=== PATIENT | male | born 1980 | race American Indian/Alaskan Native ===

== ENCOUNTER 2021-12-11 06:20 | Day surgery (SDC) | payer BC ==
[~2021-12-11 06:20] MED LIST: MIDAZOLAM 2 MG/2 ML INJ IV NR; SODIUM CHLORIDE 0.9% 1000 ML 1,000 ML IV SCH; ceFAZolin/Water 2 GM/20 ML 2 GM/20 ML SYRINGE IV NR; fentaNYL 100 MCG/2 ML INJ IV PRN
[2021-12-11 07:14] LABS: Hematocrit 40.7 % (35.5-45.6); Hemoglobin 13.7 gm/dl (11.8-15.2); Mean Corpuscular HGB Conc 34 % (32-34); Mean Corpuscular Volume 89 fl (84-94); Platelet Count 363 K/mm3 (140-440); Red Blood Count 4.58 M/mm3 (3.65-5.03); Red Cell Distribution Width 14.3 % (13.2-15.2)
[2021-12-11 07:24] LABS: Calcium 9.9 mg/dL (8.4-10.2)
[2021-12-11] MEDS ORDERED: BUPIVACAINE/PF (0.5%) 5 MG/1 ML 30 ML VIAL INFILTRATI ONE ×2 (07:41→10:24)
[2021-12-11] MEDS ORDERED: LIDOCAINE (1%) 10 MG/1 ML VIAL 20 ML MDV ONE (07:41)
[2021-12-11] MEDS ORDERED: SODIUM CHLORIDE P/F VIAL 10 ML 10 ML ONE (07:41)
[2021-12-11] MEDS ORDERED: rifAMPin 600 MG VIAL ONE (07:41)
[2021-12-11] MEDS ORDERED: HEPARIN 10,000 UNITS/10 ML VIAL ONE (07:41)
[2021-12-11] MEDS ORDERED: SODIUM CHLORIDE 0.9% 500 ML 500 ML ONE (07:42)
--- NOTE | 2021-12-11 07:53 | Anesthesia Day of Surgery ---
Anesthesia Day of Surgery - Day of Surgery Patient Examined: Yes Patient H&P Reviewed: Yes Patient is NPO: Yes
--- NOTE | 2021-12-11 07:53 | Anesthesia Consultation ---
Anesthesia Consult and Med Hx Date of service: 12/11/21 - Airway Anesthetic Teeth Evaluation: Good ROM Head & Neck: Adequate Mental/Hyoid Distance: Adequate Mallampati Class: Class III Intubation Access Assessment: Possibly Difficult - Pre-Operative Health Status ASA Pre-Surgery Classification: ASA3 Proposed Anesthetic Plan: General - Pre-Anesthesia Comment Pre-Anesthesia Comments: Discussed GA vs regional. Patient requests GA. - Pulmonary Hx Smoking: No Hx Respiratory Symptoms: No - Cardiovascular System Hx Hypertension: Yes (took antihypertensives this morning) Hx Heart Attack/AMI: No Hx Percutaneous Transluminal Coronary Angioplasty (PTCA): No - Central Nervous System CVA: No - Endocrine Hx Renal Disease: Yes (CKD V) Hx Liver Disease: No Hx Insulin Dependent Diabetes: No Hx Non-Insulin Dependent Diabetes: No Hx Thyroid Disease: No - Additional Comments Anesthesia Medical History Comments: No hx anesthetic complications.
[2021-12-11] MEDS ORDERED: OXYMETAZOLINE 0.05% NASAL SPRAY NS SCH (08:00)
[2021-12-11] MEDS ORDERED: fentaNYL 100 MCG/2 ML INJ IV PRN (08:00)
[2021-12-11] MEDS ORDERED: HYDROmorphone 1 MG/1 ML INJ ONE (08:00)
[2021-12-11] MEDS ORDERED: ONDANSETRON 4 MG/2 ML INJ IV PRN (08:00)
[2021-12-11] MEDS ORDERED: HYDROcodone/ACETAMINOPHEN 5-325 MG TAB PO PRN (08:00)
[2021-12-11] MEDS ORDERED: propofoL 200 MG/20 ML VIAL IV ONE (08:01)
[2021-12-11] MEDS ORDERED: LIDOCAINE MPF (2%) 20 MG/1 ML VIAL 5 ML ONE (08:03)
--- NOTE | 2021-12-11 08:33 | Short Stay Summary ---
Short Stay Documentation Date of service: 12/11/21 Narrative H&P: The patient is a 41-year-old male with a history of stage IV chronic renal sufficiency who is in need of long-term dialysis access. He is currently not on hemodialysis however access is needed to avoid a permacath if he progresses to end-stage renal disease. An ultrasound was performed that demonstrated his veins were in adequate for creation of an arteriovenous fistula so he will require creation of an arteriovenous graft. He was given the risk, benefits, and alternative procedures and consented to the procedure. - History Past Medical History: hypertension, renal failure Past Surgical History: No surgical history Social history: no significant social history - Allergies and Medications Current Medications: Allergies No Known Allergies Allergy (Verified 11/16/21 14:23) Home Medications Medication Instructions Recorded Confirmed Last Taken Type Chlorthalidone [Thalitone] 25 mg PO QDAY 12/04/21 12/11/21 12/10/21 09:00 History Sodium Bicarbonate 650 mg PO DAILY 12/04/21 12/11/21 12/10/21 09:00 History amLODIPine [Norvasc] 10 mg PO DAILY 12/04/21 12/11/21 12/11/21 05:00 History hydrALAZINE [Apresoline TAB] 100 mg PO TID 12/04/21 12/11/21 12/11/21 05:00 History Active Medications Hydrocodone Bitart/Acetaminophen (Hydrocodone/Acetaminophen 5-325 Mg Tab) 2 each PO ONCE PRN PRN Reason: Pain, Moderate (4-6) Stop: 12/11/21 17:00 Fentanyl (Fentanyl 100 Mcg/2 Ml Inj) 100 mcg IV ONCE PRN PRN Reason: sedation for nerve block Fentanyl (Fentanyl 100 Mcg/2 Ml Inj) 50 mcg IV Q5MIN PRN PRN Reason: Pain , Severe (7-10) Stop: 12/11/21 18:00 Sodium Chloride (Nacl 0.9% 1000 Ml) 1,000 mls @ 42 mls/hr IV DIRECT G[place]KITO Stop: 12/11/21 23:59 Last Admin: 12/11/21 07:55 Dose: 42 mls/hr Ondansetron HCl (Ondansetron 4 Mg/2 Ml Inj) 4 mg IV ONCE PRN PRN Reason: Nausea And Vomiting Stop: 12/11/21 17:00 Oxymetazoline HCl (Oxymetazoline 0.05% Nasal [place]) 2 spray NS ONCE@0800 [facility] Stop: 12/11/21 16:00 - Physical exam General appearance: no acute distress Lungs: Normal air movement Breasts: deferred Heart: Regular rate Gastrointestinal: normal Male Genitourinary: deferred Female Genitourinary: deferred Rectal Exam: deferred Extremities: pulses intact (Palpable radial pulses bilaterally) - Brief post op/procedure progress note Date of procedure: 12/11/21 Pre-op diagnosis: Chronic Renal Insufficiency Stage IV Post-op diagnosis: same Procedure: Creation of Left Ashwin Arteriovenous Fistula Anesthesia: BAIRON Surgeon: MARION SHER Estimated blood loss: minimal Pathology: none Condition: stable - Disposition Condition at discharge: Good Disposition: 01 HOME / SELF CARE / HOMELESS Short Stay Discharge Plan Activity: other (No heavy lifting with left arm for 2 weeks.) Wound: open to air, keep clean and dry, per your surgeon's advice (You stress ball with left hand as often as possible.), other (Okay to wash the left arm incision with soap and water but do not soak in water for 2 weeks.) Follow up with: MARION SHER MD [Staff Physician] - 14 Days Prescriptions: HYDROcodone/APAP 7.5-325 [[place] 7.5/325] 1 each PO Q6HR PRN #30 tablet PRN Reason: Pain
[2021-12-11] MEDS ORDERED: GLYCOPYRROLATE 0.4 MG/2 ML INJ ONE (09:12)
[2021-12-11] MEDS ORDERED: HEPARIN 10,000 UNITS/10 ML VIAL IV ONE (09:30)
[2021-12-11] MEDS ORDERED: SODIUM CHLORIDE 0.9% IRR 500 ML BOTTLE IR ONE (09:31)
[2021-12-11] MEDS ORDERED: PHENYLEPHRINE/NS 1,000 MCG/10 ML SYRINGE (OR USE) IV ONE (09:43)
[2021-12-11] MEDS ORDERED: ONDANSETRON 4 MG/2 ML INJ ONE (10:33)
--- NOTE | 2021-12-11 10:36 | Operative Report ---
Operative Report Operative Report: Date of procedure: 12/11/2021 Pre-operative diagnosis: Chronic Renal Insufficiency Stage IV Post-operative diagnosis: Same Procedure(s): Creation of Left Ashwin Fistula Surgeon: Luis Antonio Kuhn MD Heat Treating Furnace Tender: None Anesthesia: General Endotracheal Anesthesia EBL: Minimal Counts: Correct Complications: None Condition: Stable Findings: Successful creation of left arm AV fistula with palpable thrill at the completion of the case. Specimen: None Indication: The patient is a 41-year-old male with a history of Chronic Renal Insufficiency Stage IV who was not yet on hemodialysis however it is anticipated that he will require hemodialysis in the near future. He is in need of long-term dialysis access to avoid placement of a permacath. Vein mapping demonstrated that he does not have adequate vein for creation of an arteriovenous fistula so he requires creation of an arteriovenous graft. He was given the risk, benefits, and alternative procedures and consented to the procedure. Description of Procedure: The patient was brought to the operating room and laid in supine position. After a timeout was performed general endotracheal anesthesia was achieved and his left arm was prepped and draped in normal sterile fashion. The initial plan was to create an arteriovenous graft however once the patient was under general endotracheal anesthesia his veins were significantly dilated and it was obvious that he had adequate vein, in his forearm, for creation of a Ashwin fistula. A longitudinal incision was then created on the distal wrist, centered between the cephalic vein and the radial artery. The dissection was carried down to the radial artery using sharp dissection and the radial artery was dissected circumferentially and controlled with vessel loops. The cephalic vein was then dissected circumferentially, ligating side branches with 3-0 silk ties and dividing them. The cephalic vein was then divided distally transpose to the radial artery. A 2 Crissy was then advanced through the cephalic vein proximally to ensure patency. The vein was then flushed with heparinized saline and control of the bulldog clamp. The patient was systemically heparinized with 3000 units of heparin IV and the radial artery clamped with DeBakey clamps. An arteriotomy was then created using an 11 blade and Wray scissors. An end-to-side anastomosis was created between the cephalic vein and the radial artery using a single 6-0 Prolene in running fashion. Prior to completing the anastomosis I flashed the artery both retrograde and antegrade and advanced a 3 Crissy into the proximal portion of the artery to break the spasm. I then completed the anastomosis and removed all clamps allowing flow into the fistula which had a palpable thrill. Hemostasis within the wound was achieved with a combination of manual pressure and Quick Clot. Once hemostasis was achieved the wounds were closed in 2 layers using a 3-0 Vicryl in running fashion in the deep dermal layers, 4-0 Monocryl in a running fashion the subcuticular layer, and Dermabond as a dressing. The patient tolerated the procedure well. All sponge, needle, and instrument counts were correct. The patient was taken to the recovery area in stable condition.
--- NOTE | 2021-12-11 11:55 | Post Anesthesia Evaluation ---
- Post Anesthesia Evaluation Patient Participated: Yes Airway Patent: Yes Stable Respiratory Function: Yes Nausea/Vomiting: No Temp > 96.8F: Yes Pain Manageable: Yes Adequeate Hydration: Yes Anesthesia Complications: No
[2021-12-11 14:45] VITALS: BP 139/84
== END 2021-12-11 06:21 | disposition home or self-care (01) ==
LOC: OR 06:20
PROVIDERS: ATTEND Surgery Vascular Surgery
DX: I12.0 Hypertensive chronic kidney disease with stage 5 chronic kidney disease or end stage renal disease (principal); N18.6 End stage renal disease; Z72.89 Other problems related to lifestyle; Z98.890 Other specified postprocedural states
CPT/HCPCS: 36415; 36821; 80048; 85027; J1170; J1644; J1815; J2370; J2405; J2704; J3490; J7040; J7120